=== PATIENT | male | born 1975 | race African-American/Black ===

== ENCOUNTER → 2019-10-26 | Outpatient (CLI) | payer OTHER ==
--- NOTE | 2019-10-26 20:03 | NUR ---
ECHOCARDIOGRAM COMPLETED.
== END | disposition home or self-care (01) ==
LOC: RD 15:17
DX: Z00.00 Encounter for general adult medical examination without abnormal findings (principal); R00.2 Palpitations; R07.89 Other chest pain

== ENCOUNTER 2020-03-15 16:57 | Emergency (ER) | payer OTHER ==
[~2020-03-15] VITALS: Ht 172.7 cm; Wt 77.6 kg
[2020-03-15 17:13] VITALS: BP 140/83; Ht 172.7 cm; Wt 77.6 kg
== END 2020-03-15 17:32 | disposition left against medical advice (07) ==
LOC: ED 16:57
DX: Z53.21 Procedure and treatment not carried out due to patient leaving prior to being seen by health care provider (principal)